=== PATIENT | male | born 1940 | race Caucasian/White ===

== ENCOUNTER 2017-10-17 15:40 | Inpatient (IN) | payer MEDICARE, BC ==
[2017-10-17] MEDS ORDERED: Acetaminophen/HYDROcodone 325-5 MG Tab PO ONE (16:28)
--- NOTE | 2017-10-17 16:28 | EDM.PDOC ---
ED HPI GENERAL MEDICAL PROBLEM - General Chief Complaint: Lower Extremity Injury/Pain Stated Complaint: FELL, PAIN IN RIGHT HIP Time Seen by Provider: 10/17/17 16:28 Source of Information: Reports: Patient History Limitations: Reports: No Limitations - History of Present Illness INITIAL COMMENTS - FREE TEXT/NARRATIVE: pt was at the [employer] at a recital nd he tripped and fell and landed on his rt hip. He has seveere pain in the hip and is not able to bear wt. Onset: Today, Sudden Duration: Hour(s): Location: Reports: Lower Extremity, Right Associated Symptoms: Reports: No Other Symptoms, Other (pt did not pass out. ) - Related Data Allergies Allergy/AdvReac Type Severity Reaction Status Date / Time No Known Allergies Allergy Verified 10/17/17 16:21 Home Meds: Home Meds Hydrochlorothiazide 10/17/17 [History] Lisinopril 10/17/17 [History] Past Medical History - Past Surgical History HEENT Surgical History: Reports: Cataract Surgery, Tonsillectomy GI Surgical History: Reports: Colonoscopy Social & Family History - Tobacco Use Smoking Status *Q: Never Smoker Review of Systems - Review of Systems Review Of Systems: See Below Constitutional: Reports: No Symptoms Eyes: Reports: No Symptoms Ears: Reports: No Symptoms Nose: Reports: No Symptoms Mouth/Throat: Reports: No Symptoms Respiratory: Reports: No Symptoms Cardiovascular: Reports: No Symptoms GI/Abdominal: Reports: No Symptoms Genitourinary: Reports: No Symptoms Musculoskeletal: Reports: Other (pain in the rt hip joint. 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 Exam Limited By: No Limitations General Appearance: Alert, Moderate Distress, Other (pupils equal and reactive) Ears: Normal TMs Nose: Normal Inspection Throat/Mouth: Normal Inspection Head: Atraumatic Neck: Normal Inspection Respiratory/Chest: No Respiratory Distress Cardiovascular: Regular Rate, Rhythm GI/Abdominal: Soft, Non-Tender (Male) Exam: Deferred Rectal (Males) Exam: Deferred Back Exam: Normal Inspection Extremities: Other (pain in the rt hp and any movement of the rt leg. ) Neurological: Alert, Oriented, Normal Cognition Psychiatric: Normal Affect Course - Vital Signs Last Recorded V/S: Last Vital Signs Temp Pulse 78 06/03/18 16:30 Resp BP 196/102 H 10/17/17 16:30 Pulse Ox - Orders/Labs/Meds Orders: Active Orders 24 hr Category Date Time Status EKG Documentation Completion [RC] ASDIRECTED Care 10/17/17 17:34 Active Chest 1V Frontal [CR] Stat Exams 10/17/17 17:34 Ordered Hip Min 2V or 3V w Pelvis Rt [CR] Stat Exams 10/17/17 16:26 Taken CBC WITH AUTO DIFF [HEME] Urgent Lab 10/17/17 17:34 Ordered COMPREHENSIVE METABOLIC PN,CMP [CHEM] Urgent Lab 10/17/17 17:34 Ordered UA W/MICROSCOPIC [URIN] Urgent Lab 10/17/17 17:34 Ordered Sodium Chloride 0.9% [Normal Saline] 1,000 ml Med 10/17/17 17:45 Active IV ASDIRECTED EKG 12 Lead [EK] Routine Ther 10/17/17 17:34 Ordered Medication Orders Sodium Chloride (Normal Saline) 1,000 mls @ 250 mls/hr IV ASDIRECTED LAURENT Meds: Medications Generic Name Dose Route Start Last Admin Trade Name Freq PRN Reason Stop Dose Admin Sodium Chloride 1,000 mls @ 250 mls/hr 10/17/17 17:45 Normal Saline IV ASDIRECTED LAURENT Discontinued Medications Generic Name Dose Route Start Last Admin Trade Name Freq PRN Reason Stop Dose Admin Hydrocodone Bitart/Acetaminophen 1 tab 10/17/17 16:28 10/17/17 16:32 [place] 325-5 Mg PO 10/17/17 16:29 1 tab ONETIME ONE Administration - Re-Assessments/Exams Free Text/Narrative Re-Assessment/Exam: 10/17/17 17:43 pt was found to a fracture of the neck of the rt hip. Lab work has been ordered. Departure - Departure Time of Disposition: 17:47 Disposition: Admitted As Inpatient 67 Condition: Fair Clinical Impression: Fracture of right hip, Hypertension - Discharge Information Referrals: PCP,None [Primary Care Provider] - Forms: ED Department Discharge Care Plan Goals: admit to Dr Officer - My Orders Last 24 Hours: My Active Orders 10/17/17 16:26 Hip Min 2V or 3V w Pelvis Rt [CR] Stat 10/17/17 17:34 EKG Documentation Completion [RC] ASDIRECTED Chest 1V Frontal [CR] Stat CBC WITH AUTO DIFF [HEME] Urgent COMPREHENSIVE METABOLIC PN,CMP [CHEM] Urgent UA W/MICROSCOPIC [URIN] Urgent EKG 12 Lead [EK] Routine 10/17/17 17:45 Sodium Chloride 0.9% [Normal Saline] 1,000 ml IV ASDIRECTED - Assessment/Plan Last 24 Hours: My Active Orders 10/17/17 16:26 Hip Min 2V or 3V w Pelvis Rt [CR] Stat 10/17/17 17:34 EKG Documentation Completion [RC] ASDIRECTED Chest 1V Frontal [CR] Stat CBC WITH AUTO DIFF [HEME] Urgent COMPREHENSIVE METABOLIC PN,CMP [CHEM] Urgent UA W/MICROSCOPIC [URIN] Urgent EKG 12 Lead [EK] Routine 10/17/17 17:45 Sodium Chloride 0.9% [Normal Saline] 1,000 ml IV ASDIRECTED
[2017-10-17] MEDS ORDERED: Sodium Chloride 0.9% 1,000 ML IV SCH (17:45)
[2017-10-17] MEDS ORDERED: Sodium Chloride 0.9% 10 ML Syringe FLUSH PRN (18:00)
[2017-10-17] MEDS: fentaNYL 100 MCG/2 ML SDV IVPUSH PRN (18:40)
[2017-10-17] MEDS: Ondansetron 4 MG/2 ML SDV IV PRN (18:40)
[2017-10-17] MEDS: Lactated Ringers 1,000 ML IV SCH (18:41)
--- NOTE | 2017-10-17 21:37 | PCM.HP ---
H&P History of Present Illness - General Date of Service: 10/17/17 Admit Problem/Dx: Admission Diagnosis/Problem Admission Diagnosis/Problem Hip fracture requiring operative repair Source of Information: Patient History Limitations: Reports: No Limitations - History of Present Illness Initial Comments - Free Text/Narative: He tripped on a chair and fell with immediately onset of pain and unable to walk. He came to the ER and was admitted for a fracture of the right Hip. Onset of Symptoms: Reports: Sudden Location: Reports: Lower Extremity, Right Worsens with: Reports: None - Related Data Allergies/Adverse Reactions: Allergies Allergy/AdvReac Type Severity Reaction Status Date / Time No Known Allergies Allergy Verified 10/17/17 16:21 Home Medications: Home Meds Hydrochlorothiazide 1 tab PO DAILY 10/17/17 [History] Lisinopril 1 tab PO DAILY 10/17/17 [History] Past Medical History Cardiovascular History: Reports: Hypertension Neurological History: Reports: Neuropathy, Peripheral - Past Surgical History HEENT Surgical History: Reports: Cataract Surgery, Tonsillectomy GI Surgical History: Reports: Colonoscopy Social & Family History - Tobacco Use Smoking Status *Q: Never Smoker Second Hand Smoke Exposure: No - Caffeine Use Caffeine Use: Reports: None - Recreational Drug Use Recreational Drug Use: No H&P Review of Systems - Review of Systems: Review Of Systems: See Below HEENT: Reports: No Symptoms Pulmonary: Reports: No Symptoms Cardiovascular: Reports: No Symptoms Gastrointestinal: Reports: No Symptoms Genitourinary: Reports: No Symptoms Musculoskeletal: Reports: Leg Pain Skin: Reports: No Symptoms Psychiatric: Reports: No Symptoms Neurological: Reports: No Symptoms Exam - Exam Exam: See Below - Vital Signs Vital Signs: Last Vital Signs Temp Pulse 80 10/17/17 19:19 Resp 18 10/17/17 19:19 BP 179/82 H 10/17/17 19:19 Pulse Ox 96 10/17/17 19:19 Weight: 173 lb 8 oz - Exam General: Alert, Oriented, 4 HEENT: PERRLA, Hearing Intact, Mucosa Moist & [place], Nares Patent, Normal Nasal Septum, Posterior Pharynx Clear, Conjunctiva Clear, EOMI, EACs Clear, TMs Clear Neck: Supple Lungs: Clear to Auscultation, Normal Respiratory Effort Cardiovascular: Regular Rate, Regular Rhythm GI/Abdominal Exam: Normal Bowel Sounds, Soft, Non-Tender, No Organomegaly, No Distention, No Abnormal Bruit, No Mass, Pelvis Stable Back Exam: Normal Inspection, Full Range of Motion, NT Extremities: Normal Inspection, Normal Range of Motion, Non-Tender, No Pedal Edema, Normal Capillary Refill Peripheral Pulses: 1+: Radial (L), Radial (R) Skin: Warm, Dry, Intact Neuro Extensive - Mental Status: Alert, Oriented x3, Normal Mood/Affect, Normal Cognition Psychiatric: Alert, Normal Affect, Normal Mood - Patient Data Lab Results Last 24 hrs: Laboratory Results - last 24 hr 10/17/17 10/17/17 10/17/17 Range/Units 17:34 17:34 17:48 WBC 8.6 (4.5-11.0) K/uL RBC 4.24 L (4.30-5.90) M/uL Hgb 13.6 (12.0-15.0) g/dL Hct 38.2 L (40.0-54.0) % MCV 90 (80-98) fL MCH 32 H (27-31) pg MCHC 36 (32-36) % Plt Count 196 (150-400) K/uL Neut % (Auto) 88 H (36-66) % Lymph % (Auto) 3 L (24-44) % [place] % (Auto) 9 H (2-6) % Eos % (Auto) 0 L (2-4) % Baso % (Auto) 0 (0-1) % Sodium 125 L (140-148) mmol/L Potassium 3.8 (3.6-5.2) mmol/L Chloride 89 L (100-108) mmol/L Carbon Dioxide 26 (21-32) mmol/L Anion Gap 13.8 (5.0-14.0) mmol/L BUN 20 H (7-18) mg/dL Creatinine 1.2 (0.8-1.3) mg/dL Est Cr Clr Drug Dosing 53.76 mL/min Estimated GFR (MDRD) 59 L (>60) Glucose 114 H (74-106) mg/dL Calcium 8.5 (8.5-10.1) mg/dL Total Bilirubin 0.5 (0.2-1.0) mg/dL AST 25 (15-37) U/L ALT 37 (12-78) U/L Alkaline Phosphatase 61 (46-116) U/L Total Protein 7.3 (6.4-8.2) g/dL Albumin 3.6 (3.4-5.0) g/dL Globulin 3.7 H (2.3-3.5) g/dL Albumin/Globulin Ratio 1.0 L (1.2-2.2) Urine Color Yellow Urine Appearance Clear Urine pH 6.0 (4.5-8.0) Ur Specific [place] 1.010 (1.008-1.030) Urine Protein Negative (NEGATIVE) mg/dL Urine Glucose (UA) Normal (NEGATIVE) mg/dL Urine Ketones Negative (NEGATIVE) mg/dL Urine Occult Blood Negative (NEGATIVE) Urine Nitrite Negative (NEGAITVE) Urine Bilirubin Negative (NEGATIVE) Urine Urobilinogen Normal (NORMAL) mg/dL Ur Leukocyte Esterase Negative (NEGATIVE) Urine RBC Not seen (0-5) Urine WBC Not seen (0-5) Ur Epithelial Cells Not seen Amorphous Sediment Not seen Urine Bacteria Not seen Urine Mucus Not seen Result Diagrams: 10/17/17 17:34 10/17/17 17:34 Problem List Initiated/Reviewed/Updated: Yes Orders Last 24hrs: Active Orders 24 hr Category Date Time Status Patient Status [ADT] Routine ADT 10/17/17 18:00 Active Bedrest Bedside Commode [RC] ASDIRECTED Care 10/17/17 18:00 Active EKG Documentation Completion [RC] ASDIRECTED Care 10/17/17 17:34 Active Height and Weight [RC] DAILY Care 10/17/17 18:00 Active Intake and Output [RC] QSHIFT Care 10/17/17 18:02 Active Oxygen Therapy [RC] PRN Care 10/17/17 18:00 Active Oxygen Therapy [RC] PRN Care 10/17/17 21:27 Active Peripheral IV Care [RC] . DIRECTED Care 10/17/17 18:05 Active VTE/DVT Education [RC] Per Unit Routine Care 10/17/17 18:00 Active VTE/DVT Education [RC] Per Unit Routine Care 10/17/17 21:27 Active Vital Signs [RC] Q4H Care 10/17/17 18:00 Active Nothing per Oral After Midnight Diet [DIET] Diet 10/17/17 Breakfast Active Chest 1V Frontal [CR] Stat Exams 10/17/17 17:34 Taken Hip Min 2V or 3V w Pelvis Rt [CR] Stat Exams 10/17/17 16:26 Taken UA W/MICROSCOPIC [URIN] Urgent Lab 10/17/17 17:48 Ordered Hydrochlorothiazide Med 10/18/17 09:00 Ordered DOSE mg PO DAILY Lactated Ringers [Ringers, Lactated] 1,000 ml Med 10/17/17 18:00 Active IV ASDIRECTED Lisinopril [Prinivil] Med 10/18/17 09:00 Ordered DOSE mg PO DAILY Ondansetron [Zofran] Med 10/17/17 18:00 Active 4 mg IV Q4H PRN Sodium Chloride 0.9% [Saline Flush] Med 10/17/17 18:00 Active 10 ml FLUSH ASDIRECTED PRN fentaNYL [Sublimaze] Med 10/17/17 18:06 Active 50 mcg IVPUSH Q6H PRN Peripheral IV Insertion Adult [OM.PC] Routine Oth 10/17/17 18:00 Ordered Sequential Compression Device [OM.PC] Per Unit Routine Oth 10/17/17 18:02 Ordered Resuscitation Status Routine Resus Stat 10/17/17 18:00 Ordered EKG 12 Lead [EK] Routine Ther 10/17/17 17:34 Ordered Medication Orders Fentanyl (Sublimaze) 50 mcg IVPUSH Q6H PRN PRN Reason: Pain (severe 7-10) Last Admin: 10/17/17 18:40 Dose: 50 mcg Hydrochlorothiazide (Hydrochlorothiazide) mg PO DAILY [facility] Lactated Ringer's (Ringers, Lactated) 1,000 mls @ 125 mls/hr IV ASDIRECTED LAURENT Last Admin: 10/17/17 18:41 Dose: 125 mls/hr Lisinopril (Prinivil) mg PO DAILY [facility] Ondansetron HCl (Zofran) 4 mg IV Q4H PRN PRN Reason: Nausea/Vomiting Last Admin: 10/17/17 18:40 Dose: 4 mg Sodium Chloride (Saline Flush) 10 ml FLUSH ASDIRECTED PRN PRN Reason: Keep Vein Open Assessment/Plan Comment:: Assessment/Plan: #1/ Fracture right hip. He is in pain will increase his meds. #2. History of HTN. BP is elevated secondary to the pain will increase pain medication. Will clear for surgery in the morning.
[2017-10-17] MEDS: Ibuprofen 600 MG Tab PO PRN (21:59)
[2017-10-17] MEDS: Acetaminophen/HYDROcodone 325-5 MG Tab PO PRN (21:59)
[2017-10-18] MEDS: Lactated Ringers 1,000 ML IV SCH ×3 (01:43→20:14)
[2017-10-18] MEDS: Acetaminophen/HYDROcodone 325-5 MG Tab PO PRN ×4 (03:03→21:35)
[2017-10-18] MEDS ORDERED: Bupivacaine 0.5%/EPINEPHrine 1:200,000 50 ML MDV ONE (09:19)
[2017-10-18] MEDS ORDERED: Povidone-Iodine 10% Soln 118.25 ML Bottle ONE (09:20)
[2017-10-18] MEDS ORDERED: Gentamicin 40 MG/ML 2 ML Vial ONE (09:22)
--- NOTE | 2017-10-18 09:30 | PCM.CONS ---
H&P History of Present Illness - General Admit Problem/Dx: Admission Diagnosis/Problem Admission Diagnosis/Problem Hip fracture requiring operative repair Source of Information: Patient History Limitations: Reports: No Limitations - History of Present Illness Onset of Symptoms: Reports: Sudden Duration of Symptoms: Reports: Day(s): Location: Reports: Lower Extremity, Right Quality: Reports: Ache, Burning, Dull Severity: Moderate Improves with: Reports: Immobilization Worsens with: Reports: Movement Associated Symptoms: Reports: No Other Symptoms - Related Data Allergies/Adverse Reactions: Allergies Allergy/AdvReac Type Severity Reaction Status Date / Time No Known Allergies Allergy Verified 10/17/17 16:21 Home Medications: Home Meds Hydrochlorothiazide 25 mg PO DAILY 10/17/17 [History] Lisinopril 10 mg PO DAILY 10/17/17 [History] Past Medical History Cardiovascular History: Reports: Hypertension Neurological History: Reports: Neuropathy, Peripheral - Past Surgical History HEENT Surgical History: Reports: Cataract Surgery, Tonsillectomy GI Surgical History: Reports: Colonoscopy Social & Family History - Tobacco Use Smoking Status *Q: Never Smoker Second Hand Smoke Exposure: No - Caffeine Use Caffeine Use: Reports: None - Recreational Drug Use Recreational Drug Use: No H&P Review of Systems - Review of Systems: Review Of Systems: See Below General: Reports: No Symptoms HEENT: Reports: No Symptoms Pulmonary: Reports: No Symptoms Cardiovascular: Reports: No Symptoms Gastrointestinal: Reports: No Symptoms Genitourinary: Reports: No Symptoms Musculoskeletal: Reports: Joint Pain Skin: Reports: No Symptoms Psychiatric: Reports: No Symptoms Neurological: Reports: No Symptoms Hematologic/Lymphatic: Reports: No Symptoms Immunologic: Reports: No Symptoms Exam - Exam Exam: See Below - Vital Signs Vital Signs: Last Vital Signs Temp 95.5 F 10/18/17 07:56 Pulse 53 L 10/18/17 07:56 Resp 16 10/18/17 07:56 BP 142/67 H 10/18/17 07:56 Pulse Ox 95 10/18/17 07:56 Weight: 173 lb 8 oz - Exam General: Alert, Oriented HEENT: PERRLA, Conjunctiva Clear, Hearing Intact, Mucosa Moist & [place] Neck: Supple, Trachea Midline Lungs: Normal Respiratory Effort Extremities: Limited Range of Motion Peripheral Pulses: 2+: Dorsalis Pedis (L), Dorsalis Pedis (R) Skin: Warm, Dry, Intact Psychiatric: Alert, Normal Affect - Patient Data Lab Results Last 24 hrs: Laboratory Results - last 24 hr 10/17/17 10/17/17 10/17/17 Range/Units 17:34 17:34 17:48 WBC 8.6 (4.5-11.0) K/uL RBC 4.24 L (4.30-5.90) M/uL Hgb 13.6 (12.0-15.0) g/dL Hct 38.2 L (40.0-54.0) % MCV 90 (80-98) fL MCH 32 H (27-31) pg MCHC 36 (32-36) % Plt Count 196 (150-400) K/uL Neut % (Auto) 88 H (36-66) % Lymph % (Auto) 3 L (24-44) % [place] % (Auto) 9 H (2-6) % Eos % (Auto) 0 L (2-4) % Baso % (Auto) 0 (0-1) % Sodium 125 L (140-148) mmol/L Potassium 3.8 (3.6-5.2) mmol/L Chloride 89 L (100-108) mmol/L Carbon Dioxide 26 (21-32) mmol/L Anion Gap 13.8 (5.0-14.0) mmol/L BUN 20 H (7-18) mg/dL Creatinine 1.2 (0.8-1.3) mg/dL Est Cr Clr Drug Dosing 53.76 mL/min Estimated GFR (MDRD) 59 L (>60) Glucose 114 H (74-106) mg/dL Calcium 8.5 (8.5-10.1) mg/dL Total Bilirubin 0.5 (0.2-1.0) mg/dL AST 25 (15-37) U/L ALT 37 (12-78) U/L Alkaline Phosphatase 61 (46-116) U/L Total Protein 7.3 (6.4-8.2) g/dL Albumin 3.6 (3.4-5.0) g/dL Globulin 3.7 H (2.3-3.5) g/dL Albumin/Globulin Ratio 1.0 L (1.2-2.2) Urine Color Yellow Urine Appearance Clear Urine pH 6.0 (4.5-8.0) Ur Specific [place] 1.010 (1.008-1.030) Urine Protein Negative (NEGATIVE) mg/dL Urine Glucose (UA) Normal (NEGATIVE) mg/dL Urine Ketones Negative (NEGATIVE) mg/dL Urine Occult Blood Negative (NEGATIVE) Urine Nitrite Negative (NEGAITVE) Urine Bilirubin Negative (NEGATIVE) Urine Urobilinogen Normal (NORMAL) mg/dL Ur Leukocyte Esterase Negative (NEGATIVE) Urine RBC Not seen (0-5) Urine WBC Not seen (0-5) Ur Epithelial Cells Not seen Amorphous Sediment Not seen Urine Bacteria Not seen Urine Mucus Not seen Result Diagrams: 10/17/17 17:34 10/17/17 17:34 Consult PN Assessment/Plan Procedures: Procedures CHEST X-RAY 2VW FRONTAL&LATL (04/15/15) (1) Fracture of right hip SNOMED Code(s): 936890554 Code(s): S72.001A - FRACTURE OF UNSP PART OF NECK OF RIGHT FEMUR, INIT Current Visit: Yes Qualifiers: Encounter type: initial encounter Fracture type: closed Qualified Code(s) : S72.001A - Fracture of unspecified part of neck of right femur, initial encounter for closed fracture Problem List Initiated/Reviewed/Updated: Yes My Orders Last 24 Hours: My Active Orders 10/18/17 11:00 ceFAZolin [Ancef] 2 gm Premix Bag 1 bag IV ONETIME Plan: assessment: Closed right femoral neck fracture Plan: I discussed the options with the patient. He did not have any pain in his right hip prior to this injury. He fell while at [employer]. He denies any constitutional symptoms. I explained that I would recommend right hip hemiarthroplasty. Wrist and benefits of the procedure explained to the patient and informed cells obtained. We'll proceed at 11:30 this morning. Requesting Provider: kevin bowen Date Consult Requested: 10/24/17 Patient History Reviewed: Yes Admission H&P Reviewed: Yes Notified Requestor: Yes
--- NOTE | 2017-10-18 09:55 | CR ---
Hip Min 2V or 3V w Pelvis Rt CLINICAL HISTORY: Right hip pain, fall FINDINGS: There is a fracture of the right femoral neck. There is mild degenerative changes in both h ips.. Impression: Minimally displaced fracture of the right femoral neck
--- NOTE | 2017-10-18 09:56 | CR ---
CHEST: 1 view CLINICAL HISTORY:Preop COMPARISON:2014 FINDINGS: Lungs are hyperaerated but clear. Heart and pulmonary vascularity are normal IMPRESSION: No acute cardiopulmonary process or significant change from prior study
[2017-10-18] MEDS ORDERED: ceFAZolin 2 GM in Premix Bag 1 BAG IV ONE (11:00)
[2017-10-18] MEDS ORDERED: Propofol 200 MG/20 ML SDV ONE (11:05)
[2017-10-18] MEDS ORDERED: Midazolam 1 MG/ML 2 ML SDV ONE (11:05)
[2017-10-18] MEDS ORDERED: fentaNYL 100 MCG/2 ML SDV ONE (11:05)
[2017-10-18] MEDS ORDERED: Bupivacaine 0.75%/D5W 2 ML Amp ONE (11:07)
[2017-10-18] MEDS ORDERED: Lactated Ringers 1,000 ML ONE (12:59)
--- NOTE | 2017-10-18 14:19 | OR ---
DATE OF PROCEDURE: 10/18/2017 PREOPERATIVE DIAGNOSIS: Right femoral neck fracture, closed. POSTOPERATIVE DIAGNOSIS: Right femoral neck fracture, closed. PROCEDURE: Right hip hemiarthroplasty. ANESTHESIA: Spinal plus conscious sedation. FLUIDS: Lactated Ringer's solution. ESTIMATED BLOOD LOSS: 100 mL. COMPLICATIONS: None. SPECIMEN: None. DISCHARGE DISPOSITION: Stable to PACU. INSTRUMENTATION: DePuy Burnet femoral stem, 1214 taper, size 7 standard with a 28 mm inside diameter and 56 outside diameter, bipolar head with 28 mm being a +1.5 neck. INDICATIONS FOR THE PROCEDURE: The patient was seen this morning. He fell yesterday in denominational. He was seen in the emergency department by Dr. Valera. He was found to have the above-mentioned fracture. He was then admitted to the service of Dr. Castellanos, his family physician. He was preoperatively optimized. I saw him this morning and examined him. I advised him of the risks and benefits of the procedure, and informed consent was obtained. DETAILS OF PROCEDURE: The patient was seen preoperatively by myself and the anesthesia staff in the preop holding area where the operative site was marked. He was brought to the operative suite by anesthesia staff where spinal plus conscious sedation was administered. He was placed into a left lateral recumbent position on a pegboard. All extremities were found to be well padded, and an axillary roll was present. The right lower extremity was then prepped and draped in a sterile manner. Time-out was called in for the correct patient, the correct procedure, the correct site, and that the antibiotics had begun within the appropriate period of time. An incision was made 7 mm proximal to the greater trochanter and then approximately 10 cm distal to the greater trochanter and carried down to the iliotibial band. Bleeding during the case was controlled with Bovie electrocautery. I used Gelpi's for retraction. I then went through the iliotibial band with the cautery unit and then inserted the Charnley retractor underneath the iliotibial band. I then removed the deep capsule, gluteus medius, and gluteus minimus from insertions on the greater trochanter from the level of lesser trochanter to the level of greater trochanter. I then carefully peeled off the capsule over the femoral neck down to the fracture site. An area of this, I did split longitudinally, I made my saw cut, protecting the tissues with 2 sharp Homans. This was made approximately 1 cm proximal to the lesser trochanter. I then used a corkscrew to remove the femoral head which measured 56 mm. I then trialed the femoral head at 56 mm, which provided a good fit. We then cleared any extra soft tissue from the acetabulum and then using a preparing box tender, cleared the bone from the inside of the lateral cortex of the greater trochanter. I then used a canal finder and a lateralizing reamer followed by sequential reamers up to an 8. I then broached from 5 to 7. Seven seemed to be a good fit and then trialed with a +1.5, 28, 56, which provided excellent stability throughout range of motion with minimal shuck. We then removed all of our components, copiously irrigated with saline, inserted our final components, relocated and then put this to range of motion, which provided good stability. I then closed the deep capsule, gluteus medius and gluteus minimus carefully with #5 Ethibond followed by #1 Strata fix in the iliotibial band followed by #2 Stratafix subcutaneously followed by skin paris, followed by sterile dressing. The patient was then transferred to the PACU in stable condition. Chivo Ivan DO /[id number]
--- NOTE | 2017-10-18 15:28 | CR ---
Hip Min 1V Rt CLINICAL HISTORY: Total hip arthroplasty FINDINGS: Patient has had the total right hip arthroplasty. Components appear well seated. Impression: Recent total right hip arthroplasty
[2017-10-18] MEDS: Hydrochlorothiazide 25 MG Tab PO SCH (15:38)
[2017-10-18] MEDS: Lisinopril 10 MG Tab PO SCH (15:39)
[2017-10-18] MEDS: Ibuprofen 600 MG Tab PO PRN (17:04)
[2017-10-18] MEDS: fentaNYL 100 MCG/2 ML SDV IVPUSH PRN (18:52)
--- NOTE | 2017-10-18 19:04 | PCM.PN ---
- General Info Date of Service: 10/18/17 Functional Status: Reports: Other (His pain is not good control this PM. He will be taking meds now.) - Review of Systems General: Reports: No Symptoms Pulmonary: Reports: No Symptoms Cardiovascular: Reports: No Symptoms Gastrointestinal: Reports: No Symptoms Genitourinary: Reports: No Symptoms Musculoskeletal: Reports: No Symptoms Skin: Reports: No Symptoms Psychiatric: Reports: No Symptoms - Patient Data Vitals - Most Recent: Last Vital Signs Temp 97.2 F 10/18/17 18:59 Pulse 64 10/18/17 18:59 Resp 16 10/18/17 18:59 BP 157/68 H 10/18/17 18:59 Pulse Ox 96 10/18/17 18:59 Weight - Most Recent: 173 lb 7.99 oz I&O - Last 24 Hours: Intake & Output 10/18/17 10/18/17 10/18/17 06:59 14:59 22:59 Intake Total 1241 50 2029 Output Total 375 650 650 Balance 866 -600 1379 Med Orders - Current: Current Medications Hydrocodone Bitart/Acetaminophen ([place] 325-5 Mg) 1 - 2 tab PO Q4H PRN PRN Reason: Pain Last Admin: 10/18/17 15:39 Dose: 2 tab Fentanyl (Sublimaze) 50 mcg IVPUSH Q6H PRN PRN Reason: Pain (severe 7-10) Last Admin: 10/18/17 18:52 Dose: 50 mcg Hydrochlorothiazide (Hydrochlorothiazide) 25 mg PO DAILY [facility] Last Admin: 10/18/17 15:38 Dose: 25 mg Lactated Ringer's (Ringers, Lactated) 1,000 mls @ 125 mls/hr IV ASDIRECTED [facility] Last Admin: 10/18/17 09:43 Dose: 125 mls/hr Ibuprofen (Motrin) 600 mg PO Q6H PRN PRN Reason: Pain Last Admin: 10/18/17 17:04 Dose: 600 mg Lisinopril (Prinivil) 10 mg PO DAILY [facility] Last Admin: 10/18/17 15:39 Dose: 10 mg Ondansetron HCl (Zofran) 4 mg IV Q4H PRN PRN Reason: Nausea/Vomiting Last Admin: 10/17/17 18:40 Dose: 4 mg Sodium Chloride (Saline Flush) 10 ml FLUSH ASDIRECTED PRN PRN Reason: Keep Vein Open Discontinued Medications Hydrocodone Bitart/Acetaminophen ([place] 325-5 Mg) 1 tab PO ONETIME ONE Stop: 10/17/17 16:29 Last Admin: 10/17/17 16:32 Dose: 1 tab Bupivacaine HCl/Dextrose ([place] 0.75% Spinal) Confirm Administered Dose 2 ml .ROUTE .STK-MED ONE Stop: 10/18/17 11:08 Bupivacaine HCl/Epinephrine Bitart ([place] 0.5%/Epinephrine 1:200,000) Confirm Administered Dose 50 ml .ROUTE .STK-MED ONE Stop: 10/18/17 09:20 Last Admin: 10/18/17 12:58 Dose: 20 ml Fentanyl (Sublimaze) Confirm Administered Dose 100 mcg .ROUTE .STK-MED ONE Stop: 10/18/17 11:06 Gentamicin Sulfate (Gentamicin) Confirm Administered Dose 240 mg .ROUTE .STK- MED ONE Stop: 10/18/17 09:23 Last Admin: 10/18/17 11:45 Dose: 240 mg Sodium Chloride (Normal Saline) 1,000 mls @ 250 mls/hr IV ASDIRECTED [facility] Cefazolin Sodium/Dextrose 2 gm (/ Premix) 50 mls @ 100 mls/hr IV ONETIME ONE Stop: 10/18/17 11:29 Last Admin: 10/18/17 11:25 Dose: 100 mls/hr Lactated Ringer's (Ringers, Lactated) Confirm Administered Dose 1,000 mls @ as directed .ROUTE .STK-MED ONE Stop: 10/18/17 13:00 Midazolam HCl (Versed 1 Mg/Ml) Confirm Administered Dose 2 mg .ROUTE .STK-MED ONE Stop: 10/18/17 11:06 Povidone Iodine (Betadine 10% Soln) Confirm Administered Dose 1 ml .ROUTE .STK- MED ONE Stop: 10/18/17 09:21 Last Admin: 10/18/17 13:20 Dose: 10 ml Propofol (Diprivan 20 Ml) Confirm Administered Dose 200 mg .ROUTE .STK-MED ONE Stop: 10/18/17 11:06 - Exam General: Alert, Oriented Neck: Supple Lungs: Clear to Auscultation, Normal Respiratory Effort Cardiovascular: Regular Rate, Regular Rhythm GI/Abdominal Exam: Normal Bowel Sounds, Soft, Non-Tender, No Organomegaly, No Distention, No Abnormal Bruit, No Mass, Pelvis Stable Peripheral Pulses: 1+: Radial (L), Radial (R) Skin: Warm, Dry, Intact Psy/Mental Status: Alert, Normal Affect, Normal Mood - Problem List Review Problem List Initiated/Reviewed/Updated: Yes - My Orders Last 24 Hours: My Active Orders 10/17/17 21:27 VTE/DVT Education [RC] Per Unit Routine 10/17/17 21:43 Acetaminophen/HYDROcodone [[place] 325-5 MG] 1 - 2 tab PO Q4H PRN Ibuprofen [Motrin] 600 mg PO Q6H PRN 10/18/17 09:00 Hydrochlorothiazide 25 mg PO DAILY Lisinopril [Prinivil] 10 mg PO DAILY - Plan Plan:: Assessment/Plan: #1. Fracture right hip. He is in pain will increase his meds. He was stable pre surgery and is stable post surgery but in pain. Meds are pending at the present time. Will start Zeralto 10 mg in the AM. #2. History of HTN. BP is elevated secondary to the pain will increase pain medication.
[2017-10-18] MEDS: Ondansetron 4 MG/2 ML SDV IV PRN (19:06)
[2017-10-19] MEDS: Acetaminophen/HYDROcodone 325-5 MG Tab PO PRN ×5 (03:34→20:09)
[2017-10-19] MEDS: Lactated Ringers 1,000 ML IV SCH ×2 (03:35→11:42)
--- NOTE | 2017-10-19 07:50 | PCM.PN ---
- General Info Date of Service: 10/19/17 Functional Status: Reports: Pain Controlled, Tolerating Diet - Review of Systems General: Reports: No Symptoms HEENT: Reports: No Symptoms Pulmonary: Reports: No Symptoms Cardiovascular: Reports: No Symptoms Gastrointestinal: Reports: No Symptoms Genitourinary: Reports: No Symptoms Musculoskeletal: Reports: Leg Pain, Joint Pain Skin: Reports: No Symptoms Neurological: Reports: No Symptoms Psychiatric: Reports: No Symptoms - Patient Data Vitals - Most Recent: Last Vital Signs Temp 97.5 F 10/19/17 07:41 Pulse 65 10/19/17 07:41 Resp 18 10/19/17 07:41 BP 148/71 H 10/19/17 07:41 Pulse Ox 96 10/19/17 07:41 Weight - Most Recent: 175 lb 12.8 oz I&O - Last 24 Hours: Intake & Output 10/18/17 10/19/17 10/19/17 22:59 06:59 14:59 Intake Total 2629 1281 Output Total 1250 1075 Balance 1379 206 Med Orders - Current: Current Medications Hydrocodone Bitart/Acetaminophen ([place] 325-5 Mg) 1 - 2 tab PO Q4H PRN PRN Reason: Pain Last Admin: 10/19/17 07:34 Dose: 1 tab Fentanyl (Sublimaze) 50 mcg IVPUSH Q6H PRN PRN Reason: Pain (severe 7-10) Last Admin: 10/18/17 18:52 Dose: 50 mcg Hydrochlorothiazide (Hydrochlorothiazide) 25 mg PO DAILY [facility] Last Admin: 10/18/17 15:38 Dose: 25 mg Lactated Ringer's (Ringers, Lactated) 1,000 mls @ 125 mls/hr IV ASDIRECTED [facility] Last Admin: 10/19/17 03:35 Dose: 125 mls/hr Ibuprofen (Motrin) 600 mg PO Q6H PRN PRN Reason: Pain Last Admin: 10/18/17 17:04 Dose: 600 mg Lisinopril (Prinivil) 10 mg PO DAILY [facility] Last Admin: 10/18/17 15:39 Dose: 10 mg Ondansetron HCl (Zofran) 4 mg IV Q4H PRN PRN Reason: Nausea/Vomiting Last Admin: 10/18/17 19:06 Dose: 4 mg Sodium Chloride (Saline Flush) 10 ml FLUSH ASDIRECTED PRN PRN Reason: Keep Vein Open Discontinued Medications Hydrocodone Bitart/Acetaminophen ([place] 325-5 Mg) 1 tab PO ONETIME ONE Stop: 10/17/17 16:29 Last Admin: 10/17/17 16:32 Dose: 1 tab Bupivacaine HCl/Dextrose ([place] 0.75% Spinal) Confirm Administered Dose 2 ml .ROUTE .STK-MED ONE Stop: 10/18/17 11:08 Bupivacaine HCl/Epinephrine Bitart ([place] 0.5%/Epinephrine 1:200,000) Confirm Administered Dose 50 ml .ROUTE .STK-MED ONE Stop: 10/18/17 09:20 Last Admin: 10/18/17 12:58 Dose: 20 ml Fentanyl (Sublimaze) Confirm Administered Dose 100 mcg .ROUTE .STK-MED ONE Stop: 10/18/17 11:06 Gentamicin Sulfate (Gentamicin) Confirm Administered Dose 240 mg .ROUTE .STK- MED ONE Stop: 10/18/17 09:23 Last Admin: 10/18/17 11:45 Dose: 240 mg Sodium Chloride (Normal Saline) 1,000 mls @ 250 mls/hr IV ASDIRECTED [facility] Cefazolin Sodium/Dextrose 2 gm (/ Premix) 50 mls @ 100 mls/hr IV ONETIME ONE Stop: 10/18/17 11:29 Last Admin: 10/18/17 11:25 Dose: 100 mls/hr Lactated Ringer's (Ringers, Lactated) Confirm Administered Dose 1,000 mls @ as directed .ROUTE .STK-MED ONE Stop: 10/18/17 13:00 Midazolam HCl (Versed 1 Mg/Ml) Confirm Administered Dose 2 mg .ROUTE .STK-MED ONE Stop: 10/18/17 11:06 Povidone Iodine (Betadine 10% Soln) Confirm Administered Dose 1 ml .ROUTE .STK- MED ONE Stop: 10/18/17 09:21 Last Admin: 10/18/17 13:20 Dose: 10 ml Propofol (Diprivan 20 Ml) Confirm Administered Dose 200 mg .ROUTE .STK-MED ONE Stop: 10/18/17 11:06 - Exam General: Alert, Oriented HEENT: Pupils Equal, Pupils Reactive, Mucous Membr. Moist/[place] Neck: Supple, Trachea Midline Lungs: Normal Respiratory Effort Extremities: Leg Pain, Limited Range of Motion Peripheral Pulses: 2+: Dorsalis Pedis (R) Skin: Warm, Dry, Intact Wound/Incisions: Healing Well, Dressing Dry and Intact, No Drainage Neurological: No New Focal Deficit Psy/Mental Status: Alert, Normal Affect, Normal Mood - Problem List & Annotations (1) Fracture of right hip SNOMED Code(s): 426148154 Code(s): S72.001A - FRACTURE OF UNSP PART OF NECK OF RIGHT FEMUR, INIT Status: Acute Current Visit: Yes Qualifiers: Encounter type: initial encounter Fracture type: closed Qualified Code(s) : S72.001A - Fracture of unspecified part of neck of right femur, initial encounter for closed fracture - Problem List Review Problem List Initiated/Reviewed/Updated: Yes - My Orders Last 24 Hours: My Active Orders 10/18/17 14:38 Weight bearing status [OM.PC] Routine 10/18/17 14:39 OT Evaluation and Treatment [CONS] Routine PT Evaluation and Treatment [CONS] Routine 10/18/17 Lunch Advance Diet Instructions [DIET] - Plan Plan:: Assessment/Plan: #1. POD 1 R hip hemiarthroplasty #2. PT/OT/pain control/DVT prophylaxis. Pain controlled.
[2017-10-19] MEDS: Hydrochlorothiazide 25 MG Tab PO SCH (08:34)
[2017-10-19] MEDS: Lisinopril 10 MG Tab PO SCH (08:35)
[2017-10-19] MEDS: Ibuprofen 600 MG Tab PO PRN ×2 (10:25→16:35)
[2017-10-19] MEDS ORDERED: Magnesium Hydroxide 400 MG/5 ML Susp 30 ML Cup PO PRN (11:37)
--- NOTE | 2017-10-19 14:32 | PCM.SN ---
- Free Text/Narrative Note: WAlked multiple times today. up to 126' will go to [facility] tomorrow bds
[2017-10-19] MEDS: Aspirin 325 MG Tab.EC PO SCH (15:44)
[2017-10-19] MEDS: Ondansetron 4 MG/2 ML SDV IV PRN (16:41)
[2017-10-19] MEDS ORDERED: Bisacodyl 10 MG Supp RECTAL ONE (17:20)
[2017-10-19] MEDS ORDERED: Docusate Sodium 100 MG Cap PO PRN (20:03)
--- NOTE | 2017-10-19 20:38 | PCM.PN ---
- General Info Date of Service: 10/19/17 Functional Status: Reports: Pain Controlled - Review of Systems General: Reports: No Symptoms HEENT: Reports: No Symptoms Pulmonary: Reports: No Symptoms Cardiovascular: Reports: No Symptoms Gastrointestinal: Reports: No Symptoms, Diarrhea Musculoskeletal: Reports: Leg Pain Skin: Reports: No Symptoms Neurological: Reports: No Symptoms Psychiatric: Reports: No Symptoms - Patient Data Vitals - Most Recent: Last Vital Signs Temp 97.7 F 10/19/17 18:41 Pulse 67 10/19/17 18:41 Resp 16 10/19/17 18:41 BP 126/73 10/19/17 18:41 Pulse Ox 100 10/19/17 18:41 Weight - Most Recent: 175 lb 12.8 oz I&O - Last 24 Hours: Intake & Output 10/19/17 10/19/17 10/19/17 06:59 14:59 22:59 Intake Total 1281 1280 1938 Output Total 1075 900 400 Balance 467 399 7469 Med Orders - Current: Current Medications Hydrocodone Bitart/Acetaminophen ([place] 325-5 Mg) 1 - 2 tab PO Q4H PRN PRN Reason: Pain Last Admin: 10/19/17 20:09 Dose: 2 tab Aspirin (Ecotrin) 325 mg PO DAILY [facility] Last Admin: 10/19/17 15:44 Dose: 325 mg Docusate Sodium (Colace) 200 mg PO DAILY PRN PRN Reason: Constipation Last Admin: 10/19/17 20:21 Dose: 200 mg Fentanyl (Sublimaze) 50 mcg IVPUSH Q6H PRN PRN Reason: Pain (severe 7-10) Last Admin: 10/18/17 18:52 Dose: 50 mcg Hydrochlorothiazide (Hydrochlorothiazide) 25 mg PO DAILY [facility] Last Admin: 10/19/17 08:34 Dose: 25 mg Ibuprofen (Motrin) 600 mg PO Q6H PRN PRN Reason: Pain Last Admin: 10/19/17 16:35 Dose: 600 mg Lisinopril (Prinivil) 10 mg PO DAILY [facility] Last Admin: 10/19/17 08:35 Dose: 10 mg Magnesium Hydroxide (Milk Of Magnesia) 30 ml PO DAILY PRN PRN Reason: Constipation Last Admin: 10/19/17 12:14 Dose: 30 ml Ondansetron HCl (Zofran) 4 mg IV Q4H PRN PRN Reason: Nausea/Vomiting Last Admin: 10/19/17 16:41 Dose: 4 mg Sodium Chloride (Saline Flush) 10 ml FLUSH ASDIRECTED PRN PRN Reason: Keep Vein Open Discontinued Medications Hydrocodone Bitart/Acetaminophen ([place] 325-5 Mg) 1 tab PO ONETIME ONE Stop: 10/17/17 16:29 Last Admin: 10/17/17 16:32 Dose: 1 tab Bisacodyl (Dulcolax) 10 mg RECTAL ONETIME ONE Stop: 10/19/17 17:21 Last Admin: 10/19/17 17:59 Dose: 10 mg Bupivacaine HCl/Dextrose ([place] 0.75% Spinal) Confirm Administered Dose 2 ml .ROUTE .STK-MED ONE Stop: 10/18/17 11:08 Bupivacaine HCl/Epinephrine Bitart ([place] 0.5%/Epinephrine 1:200,000) Confirm Administered Dose 50 ml .ROUTE .STK-MED ONE Stop: 10/18/17 09:20 Last Admin: 10/18/17 12:58 Dose: 20 ml Fentanyl (Sublimaze) Confirm Administered Dose 100 mcg .ROUTE .STK-MED ONE Stop: 10/18/17 11:06 Gentamicin Sulfate (Gentamicin) Confirm Administered Dose 240 mg .ROUTE .STK- MED ONE Stop: 10/18/17 09:23 Last Admin: 10/18/17 11:45 Dose: 240 mg Sodium Chloride (Normal Saline) 1,000 mls @ 250 mls/hr IV ASDIRECTED [facility] Lactated Ringer's (Ringers, Lactated) 1,000 mls @ 125 mls/hr IV ASDIRECTED [facility] Last Admin: 10/19/17 11:42 Dose: 125 mls/hr Cefazolin Sodium/Dextrose 2 gm (/ Premix) 50 mls @ 100 mls/hr IV ONETIME ONE Stop: 10/18/17 11:29 Last Admin: 10/18/17 11:25 Dose: 100 mls/hr Lactated Ringer's (Ringers, Lactated) Confirm Administered Dose 1,000 mls @ as directed .ROUTE .STK-MED ONE Stop: 10/18/17 13:00 Midazolam HCl (Versed 1 Mg/Ml) Confirm Administered Dose 2 mg .ROUTE .STK-MED ONE Stop: 10/18/17 11:06 Povidone Iodine (Betadine 10% Soln) Confirm Administered Dose 1 ml .ROUTE .STK- MED ONE Stop: 10/18/17 09:21 Last Admin: 10/18/17 13:20 Dose: 10 ml Propofol (Diprivan 20 Ml) Confirm Administered Dose 200 mg .ROUTE .STK-MED ONE Stop: 10/18/17 11:06 - Exam General: Alert, Oriented Lungs: Clear to Auscultation, Normal Respiratory Effort Cardiovascular: Regular Rate, Regular Rhythm GI/Abdominal Exam: Normal Bowel Sounds, Soft, Non-Tender, No Organomegaly, No Distention, No Abnormal Bruit, No Mass, Pelvis Stable Peripheral Pulses: 1+: Radial (L), Radial (R) Skin: Warm, Dry, Intact Wound/Incisions: Healing Well Neurological: No New Focal Deficit Psy/Mental Status: Alert, Normal Affect, Normal Mood - Problem List Review Problem List Initiated/Reviewed/Updated: Yes - My Orders Last 24 Hours: My Active Orders 10/19/17 11:37 Magnesium Hydroxide [Milk of Magnesia] 30 ml PO DAILY PRN 10/19/17 14:15 Aspirin [Ecotrin] 325 mg PO DAILY 10/19/17 17:10 Convert IV to Saline Lock [OM.PC] Routine 10/19/17 20:03 Docusate Sodium [Colace] 200 mg PO DAILY PRN - Plan Plan:: Assessment/Plan: #1. POD 1 R hip hemiarthroplasty. Condition stable #2. PT/OT/pain control/DVT prophylaxis. Pain controlled.
[2017-10-20] MEDS: Acetaminophen/HYDROcodone 325-5 MG Tab PO PRN ×3 (03:19→11:17)
[2017-10-20] MEDS: Ibuprofen 600 MG Tab PO PRN ×2 (06:07)
--- NOTE | 2017-10-20 08:05 | PCM.PN ---
- General Info Date of Service: 10/20/17 Functional Status: Reports: Pain Controlled - Review of Systems General: Reports: No Symptoms HEENT: Reports: No Symptoms Pulmonary: Reports: No Symptoms Cardiovascular: Reports: No Symptoms Gastrointestinal: Reports: No Symptoms Genitourinary: Reports: No Symptoms Musculoskeletal: Reports: No Symptoms Skin: Reports: No Symptoms Neurological: Reports: No Symptoms Psychiatric: Reports: No Symptoms - Patient Data Vitals - Most Recent: Last Vital Signs Temp 97.2 F 10/20/17 07:00 Pulse 70 10/20/17 07:00 Resp 18 10/20/17 07:00 BP 118/54 L 10/20/17 07:00 Pulse Ox 96 10/20/17 07:00 Weight - Most Recent: 175 lb 12.8 oz I&O - Last 24 Hours: Intake & Output 10/19/17 10/20/17 10/20/17 22:59 06:59 14:59 Intake Total 2758 700 Output Total 400 1000 Balance 2358 -300 Med Orders - Current: Current Medications Hydrocodone Bitart/Acetaminophen ([place] 325-5 Mg) 1 - 2 tab PO Q4H PRN PRN Reason: Pain Last Admin: 10/20/17 07:16 Dose: 2 tab Aspirin (Ecotrin) 325 mg PO DAILY [facility] Last Admin: 10/19/17 15:44 Dose: 325 mg Docusate Sodium (Colace) 200 mg PO DAILY PRN PRN Reason: Constipation Last Admin: 10/19/17 20:21 Dose: 200 mg Fentanyl (Sublimaze) 50 mcg IVPUSH Q6H PRN PRN Reason: Pain (severe 7-10) Last Admin: 10/18/17 18:52 Dose: 50 mcg Hydrochlorothiazide (Hydrochlorothiazide) 25 mg PO DAILY [facility] Last Admin: 10/19/17 08:34 Dose: 25 mg Ibuprofen (Motrin) 600 mg PO Q6H PRN PRN Reason: Pain Last Admin: 10/20/17 06:07 Dose: 600 mg Lisinopril (Prinivil) 10 mg PO DAILY [facility] Last Admin: 10/19/17 08:35 Dose: 10 mg Magnesium Hydroxide (Milk Of Magnesia) 30 ml PO DAILY PRN PRN Reason: Constipation Last Admin: 10/19/17 12:14 Dose: 30 ml Ondansetron HCl (Zofran) 4 mg IV Q4H PRN PRN Reason: Nausea/Vomiting Last Admin: 10/19/17 16:41 Dose: 4 mg Sodium Chloride (Saline Flush) 10 ml FLUSH ASDIRECTED PRN PRN Reason: Keep Vein Open Discontinued Medications Hydrocodone Bitart/Acetaminophen ([place] 325-5 Mg) 1 tab PO ONETIME ONE Stop: 10/17/17 16:29 Last Admin: 10/17/17 16:32 Dose: 1 tab Bisacodyl (Dulcolax) 10 mg RECTAL ONETIME ONE Stop: 10/19/17 17:21 Last Admin: 10/19/17 17:59 Dose: 10 mg Bupivacaine HCl/Dextrose ([place] 0.75% Spinal) Confirm Administered Dose 2 ml .ROUTE .STK-MED ONE Stop: 10/18/17 11:08 Bupivacaine HCl/Epinephrine Bitart ([place] 0.5%/Epinephrine 1:200,000) Confirm Administered Dose 50 ml .ROUTE .STK-MED ONE Stop: 10/18/17 09:20 Last Admin: 10/18/17 12:58 Dose: 20 ml Fentanyl (Sublimaze) Confirm Administered Dose 100 mcg .ROUTE .STK-MED ONE Stop: 10/18/17 11:06 Gentamicin Sulfate (Gentamicin) Confirm Administered Dose 240 mg .ROUTE .STK- MED ONE Stop: 10/18/17 09:23 Last Admin: 10/18/17 11:45 Dose: 240 mg Sodium Chloride (Normal Saline) 1,000 mls @ 250 mls/hr IV ASDIRECTED [facility] Lactated Ringer's (Ringers, Lactated) 1,000 mls @ 125 mls/hr IV ASDIRECTED [facility] Last Admin: 10/19/17 11:42 Dose: 125 mls/hr Cefazolin Sodium/Dextrose 2 gm (/ Premix) 50 mls @ 100 mls/hr IV ONETIME ONE Stop: 10/18/17 11:29 Last Admin: 10/18/17 11:25 Dose: 100 mls/hr Lactated Ringer's (Ringers, Lactated) Confirm Administered Dose 1,000 mls @ as directed .ROUTE .STK-MED ONE Stop: 10/18/17 13:00 Midazolam HCl (Versed 1 Mg/Ml) Confirm Administered Dose 2 mg .ROUTE .STK-MED ONE Stop: 10/18/17 11:06 Povidone Iodine (Betadine 10% Soln) Confirm Administered Dose 1 ml .ROUTE .STK- MED ONE Stop: 10/18/17 09:21 Last Admin: 10/18/17 13:20 Dose: 10 ml Propofol (Diprivan 20 Ml) Confirm Administered Dose 200 mg .ROUTE .STK-MED ONE Stop: 10/18/17 11:06 - Exam General: Alert, Oriented Neck: Supple Lungs: Clear to Auscultation, Normal Respiratory Effort Cardiovascular: Regular Rate, Regular Rhythm GI/Abdominal Exam: Normal Bowel Sounds, Soft, Non-Tender, No Organomegaly, No Distention, No Abnormal Bruit, No Mass, Pelvis Stable Peripheral Pulses: 1+: Radial (L), Radial (R) - Problem List Review Problem List Initiated/Reviewed/Updated: Yes - My Orders Last 24 Hours: My Active Orders 10/19/17 11:37 Magnesium Hydroxide [Milk of Magnesia] 30 ml PO DAILY PRN 10/19/17 14:15 Aspirin [Ecotrin] 325 mg PO DAILY 10/19/17 17:10 Convert IV to Saline Lock [OM.PC] Routine 10/19/17 20:03 Docusate Sodium [Colace] 200 mg PO DAILY PRN 10/20/17 08:04 BASIC METABOLIC PANEL,BMP [CHEM] Routine CBC WITH AUTO DIFF [HEME] Routine - Plan Plan:: Assessment/Plan: #1. POD 1 R hip hemiarthroplasty. Condition stable #2. PT/OT/pain control/DVT prophylaxis. Pain controlled. Plan to discharge to today
--- NOTE | 2017-10-20 08:11 | PCM.DCSUM1 ---
Discharge Summary - Hospital Course Brief History: Admitted after falling and had a fractured right hip - Discharge Data Discharge Date: 10/20/17 Discharge Disposition: Home, Self-Care 01 Condition: Good - Patient Summary/Data Operative Procedure(s) Performed: POD 1 R hip hemiarthroplasty. Consults: Consultations 10/18/17 14:39 OT Evaluation and Treatment [CONS] Routine Please Evaluate and Treat. OT Reason for Consult: Strengthening This query below is only for informational purposes and is not editable. Admission Diagnosis/Problem: Hip fracture requiring operative repair PT Evaluation and Treatment [CONS] Routine Please Evaluate and Treat. PT Reason for Consult: Strengthening This query below is only for informational purposes and is not editable. Admission Diagnosis/Problem: Hip fracture requiring operative repair Hospital Course: Hip repaired and had a uneventful recovery and going to a transitional unit. - Patient Instructions Diet: Heart Healthy Diet Activity: As Tolerated - Discharge Plan Home Medications: Home Meds Hydrochlorothiazide 25 mg PO DAILY 10/17/17 [History] Lisinopril 10 mg PO DAILY 10/17/17 [History] Acetaminophen/HYDROcodone [[place] 325-5 MG] 1 - 2 tab PO Q4H PRN tablet [Rx] Aspirin [Ecotrin] 325 mg PO DAILY tab.ec 10/20/17 [Rx] Docusate Sodium [Colace] 200 mg PO DAILY PRN cap 10/20/17 [Rx] Ibuprofen [Motrin] 600 mg PO Q6H PRN tablet 10/20/17 [Rx] Magnesium Hydroxide [Milk of Magnesia] 30 ml PO DAILY PRN cup 10/20/17 [Rx] Ondansetron [Zofran] 4 mg IV Q4H PRN vial 10/20/17 [Rx] Patient Handouts: Venous Thromboembolism Prevention, Preventing Constipation After Surgery Referrals: PCP,None [Ordering Only Provider] - 11/08/17 11:00 am (Dr. Yung Ivan) - Discharge Summary/Plan Comment DC Time >30 min.: Yes Discharge Summary/Plan Comment: Assessment/Plan: #1. POD 1 R hip hemiarthroplasty. Condition stable #2. PT/OT/pain control/DVT prophylaxis. Pain controlled. Plan to discharge to today - Patient Data Vitals - Most Recent: Last Vital Signs Temp 97.2 F 10/20/17 07:00 Pulse 70 10/20/17 07:00 Resp 18 10/20/17 07:00 BP 118/54 L 10/20/17 07:00 Pulse Ox 96 10/20/17 07:00 Weight - Most Recent: 175 lb 12.8 oz I&O - Last 24 hours: Intake & Output 10/19/17 10/20/17 10/20/17 22:59 06:59 14:59 Intake Total 2758 700 Output Total 400 1000 Balance 2358 -300 Med Orders - Current: Current Medications Hydrocodone Bitart/Acetaminophen ([place] 325-5 Mg) 1 - 2 tab PO Q4H PRN PRN Reason: Pain Last Admin: 10/20/17 07:16 Dose: 2 tab Aspirin (Ecotrin) 325 mg PO DAILY [facility] Last Admin: 10/19/17 15:44 Dose: 325 mg Docusate Sodium (Colace) 200 mg PO DAILY PRN PRN Reason: Constipation Last Admin: 10/19/17 20:21 Dose: 200 mg Fentanyl (Sublimaze) 50 mcg IVPUSH Q6H PRN PRN Reason: Pain (severe 7-10) Last Admin: 10/18/17 18:52 Dose: 50 mcg Hydrochlorothiazide (Hydrochlorothiazide) 25 mg PO DAILY [facility] Last Admin: 10/19/17 08:34 Dose: 25 mg Ibuprofen (Motrin) 600 mg PO Q6H PRN PRN Reason: Pain Last Admin: 10/20/17 06:07 Dose: 600 mg Lisinopril (Prinivil) 10 mg PO DAILY [facility] Last Admin: 10/19/17 08:35 Dose: 10 mg Magnesium Hydroxide (Milk Of Magnesia) 30 ml PO DAILY PRN PRN Reason: Constipation Last Admin: 10/19/17 12:14 Dose: 30 ml Ondansetron HCl (Zofran) 4 mg IV Q4H PRN PRN Reason: Nausea/Vomiting Last Admin: 10/19/17 16:41 Dose: 4 mg Sodium Chloride (Saline Flush) 10 ml FLUSH ASDIRECTED PRN PRN Reason: Keep Vein Open Discontinued Medications Hydrocodone Bitart/Acetaminophen ([place] 325-5 Mg) 1 tab PO ONETIME ONE Stop: 10/17/17 16:29 Last Admin: 10/17/17 16:32 Dose: 1 tab Bisacodyl (Dulcolax) 10 mg RECTAL ONETIME ONE Stop: 10/19/17 17:21 Last Admin: 10/19/17 17:59 Dose: 10 mg Bupivacaine HCl/Dextrose ([place] 0.75% Spinal) Confirm Administered Dose 2 ml .ROUTE .STK-MED ONE Stop: 10/18/17 11:08 Bupivacaine HCl/Epinephrine Bitart ([place] 0.5%/Epinephrine 1:200,000) Confirm Administered Dose 50 ml .ROUTE .STK-MED ONE Stop: 10/18/17 09:20 Last Admin: 10/18/17 12:58 Dose: 20 ml Fentanyl (Sublimaze) Confirm Administered Dose 100 mcg .ROUTE .STK-MED ONE Stop: 10/18/17 11:06 Gentamicin Sulfate (Gentamicin) Confirm Administered Dose 240 mg .ROUTE .ST- MED ONE Stop: 10/18/17 09:23 Last Admin: 10/18/17 11:45 Dose: 240 mg Sodium Chloride (Normal Saline) 1,000 mls @ 250 mls/hr IV ASDIRECTED [facility] Lactated Ringer's (Ringers, Lactated) 1,000 mls @ 125 mls/hr IV ASDIRECTED [facility] Last Admin: 10/19/17 11:42 Dose: 125 mls/hr Cefazolin Sodium/Dextrose 2 gm (/ Premix) 50 mls @ 100 mls/hr IV ONETIME ONE Stop: 10/18/17 11:29 Last Admin: 10/18/17 11:25 Dose: 100 mls/hr Lactated Ringer's (Ringers, Lactated) Confirm Administered Dose 1,000 mls @ as directed .ROUTE .ST-MED ONE Stop: 10/18/17 13:00 Midazolam HCl (Versed 1 Mg/Ml) Confirm Administered Dose 2 mg .ROUTE .STK-MED ONE Stop: 10/18/17 11:06 Povidone Iodine (Betadine 10% Soln) Confirm Administered Dose 1 ml .ROUTE .ST- MED ONE Stop: 10/18/17 09:21 Last Admin: 10/18/17 13:20 Dose: 10 ml Propofol (Diprivan 20 Ml) Confirm Administered Dose 200 mg .ROUTE .STK-MED ONE Stop: 10/18/17 11:06
[2017-10-20] MEDS: Ondansetron 4 MG/2 ML SDV IV PRN (08:48)
[2017-10-20] MEDS: Hydrochlorothiazide 25 MG Tab PO SCH (09:39)
[2017-10-20] MEDS: Aspirin 325 MG Tab.EC PO SCH (09:39)
[2017-10-20] MEDS: Lisinopril 10 MG Tab PO SCH (09:39)
== END 2017-10-20 11:35 | disposition home or self-care (01) | DRG 470 ==
LOC: JP.ED 15:40 → JP.MS 18:00
PROVIDERS: ADMIT Internal Medicine; ATTEND Internal Medicine
PROC: 0SRR0JZ Replacement of Right Hip Joint, Femoral Surface with Synthetic Substitute, Open Approach (ICD-10-PCS; principal; 2017-10-17)
DX: S72.091A Other fracture of head and neck of right femur, initial encounter for closed fracture (principal); W01.0XXA Fall on same level from slipping, tripping and stumbling without subsequent striking against object, initial encounter; I10 Essential (primary) hypertension; Y93.H2 Activity, gardening and landscaping; Y93.89 Activity, other specified; Y92.22 Religious institution as the place of occurrence of the external cause; Z79.899 Other long term (current) drug therapy
CPT/HCPCS: 36415; 71045 ×2; 73502 ×2; 80053; 81001; 85025; 93005; 99285; A9270; 73501-26-RT; 73501-RT; 80048; 97162-GP; 97530-GP; 97535-GP; 99284; C1776; J0690; J1580; J2250; J2405; J2704; J3010; J7050; J7120

== ENCOUNTER 2021-10-19 21:22 | Emergency (ER) | payer MEDICARE | END 2021-10-19 22:19 | disposition home or self-care (01) | LOC: JP.ED 21:22 | DX: K04.7 Periapical abscess without sinus (principal); I10 Essential (primary) hypertension; Z79.899 Other long term (current) drug therapy | CPT/HCPCS: 99281; 99283 ==